=== PATIENT | female | born 1970 ===

== ENCOUNTER 2021-12-26 06:05 | Day surgery (SDC) | payer OTHER ==
[2021-12-26] MEDS ORDERED: PERCOCET 5-3251 EACH PO (10:05)
== END 2021-12-26 12:00 | disposition home or self-care (01) ==
LOC: CIR.AMB 06:05
PROVIDERS: ATTEND Surgery
DX: D35.1 Benign neoplasm of parathyroid gland (principal); I10 Essential (primary) hypertension; F41.9 Anxiety disorder, unspecified; K21.9 Gastro-esophageal reflux disease without esophagitis; E21.0 Primary hyperparathyroidism